=== PATIENT | female | born 1995 ===

== ENCOUNTER → 2023-08-24 | Outpatient (CLI) | payer SELFPAY ==
[2023-08-24 14:26] LABS: BASOPHILS ABSOLUTE AUTO 0.03 K/mm3 (0.00-0.23); BASOPHILS PERCENT AUTO 0 % (0-2); EOSINOPHILS ABSOLUTE AUTO 0.21 K/mm3 (0.00-0.68); EOSINOPHILS PERCENT AUTO 2 % (0-6); Hematocrit 41.1 % (33.0-51.0); IMMATURE GRAN ABSOLUTE AUTO 0.04 K/mm3 (0.00-0.10); IMMATURE GRAN PERCENT AUTO 0 % (0-1); LYMPHOCYTES ABSOLUTE AUTO 2.49 K/mm3 (0.84-5.20); LYMPHOCYTES PERCENT AUTO 22 % (21-46); MONOCYTES ABSOLUTE AUTO 0.83 K/mm3 (0.16-1.47); MONOCYTES PERCENT AUTO 7 % (4-13); Mean Corpuscular HGB 31.2 pg (26.0-34.0); Mean Corpuscular HGB Conc 34.1 g/dL (31.5-36.5); Mean Corpuscular Volume 92 fL (80-100); Mean Platelet Volume 10.5 fL (9.1-12.4); NEUTROPHILS ABSOLUTE AUTO 7.65 K/mm3 (1.96-9.15); NEUTROPHILS PERCENT AUTO 68 % (41-73); Platelet Count 251 K/mm3 (150-400); RDW Coefficient Variation 13.3 % (11.7-14.2); RDW Standard Deviation 44.5 fL (35.1-46.3); Red Blood Cell Count 4.49 M/mm3 (3.80-5.20); White Blood Cell Count 11.25 K/mm3 (4.00-11.30)
[2023-08-24 14:39] LABS: Albumin, Blood 3.3 g/dL (3.4-5.0); Bilirubin, Total 0.3 mg/dL (0.1-1.0); Bun/Creatinine Ratio 11.8 (12.0-20.0); Calcium, Blood 8.9 mg/dL (8.5-10.1); Creatinine, Blood 0.51 mg/dL (0.40-1.00); Globulin, Blood 3.4 g/dL (2.2-4.0); Magnesium, Blood 1.7 mg/dL (1.6-2.4); Potassium, Blood 3.7 mmol/L (3.5-5.5); Total Protein, Blood 6.7 g/dL (6.4-8.2)
== END ==
LOC: LAB SHORT 14:22
PROVIDERS: Chiropractor
DX: E86.0 Dehydration (principal)
CPT/HCPCS: 80053; 83735; 85025; 87086

== ENCOUNTER 2024-03-02 11:51 | Inpatient (IN) | payer OTHER ==
[2024-03-02] VITALS (10 sets, daily range): BP systolic 107–127; BP diastolic 58–81
[~2024-03-02] VITALS: Ht 165.1 cm; Wt 78.2 kg
[2024-03-02] MEDS ORDERED: Ampicillin Sod 2,000 MG in NS 100 ML IV STA (12:14)
[2024-03-02] MEDS ORDERED: Misoprostol 200 MCG Tab PR SCH (12:15)
[2024-03-02] MEDS ORDERED: Castor Oil 59.146 ML BTL TOP SCH (12:15)
[2024-03-02] MEDS ORDERED: Oxytocin 10 Unit / ML Vial IM SCH (12:15)
[2024-03-02] MEDS ORDERED: Methylergonovine Maleate 0.2MG / ML 1ML Amp IM SCH (12:15)
[2024-03-02] MEDS ORDERED: Bupivacaine 0.5% HCl 5 MG/ML 30MLVIAL XX SCH (12:15)
[2024-03-02] MEDS ORDERED: Lactated Ringer's 1,000 ML IV PRN (12:15)
[2024-03-02] MEDS ORDERED: OXYTOCIN/RINGER'S LACTATE 500 ML IV SCH ×2 (12:15→13:35)
[2024-03-02] MEDS ORDERED: Lidocaine HCl 1% 30 ML SDV XX SCH (12:15)
[2024-03-02] MEDS ORDERED: Bupivacaine HCl 2.5 MG/ML 10ML P/F Injection XX SCH (12:15)
[2024-03-02] MEDS ORDERED: Ondansetron HCl 2 MG / ML 2ML Vial ONE (12:20)
[2024-03-02] MEDS ORDERED: Lactated Ringer's 1,000 ML IV ONE (12:21)
[2024-03-02] MEDS ORDERED: OXYTOCIN/RINGER'S LACTATE 500 ML IV ONE (12:21)
[2024-03-02 12:26] LABS: BASOPHILS ABSOLUTE AUTO 0.03 K/mm3 (0.00-0.23); BASOPHILS PERCENT AUTO 0 % (0-2); EOSINOPHILS PERCENT AUTO 1 % (0-6); Hemoglobin 11.5 g/dL (11.5-16.0); IMMATURE GRAN ABSOLUTE AUTO 0.07 K/mm3 (0.00-0.10); IMMATURE GRAN PERCENT AUTO 1 % (0-1); LYMPHOCYTES ABSOLUTE AUTO 2.74 K/mm3 (0.84-5.20); LYMPHOCYTES PERCENT AUTO 22 % (21-46); MONOCYTES PERCENT AUTO 8 % (4-13); Mean Corpuscular HGB 28.2 pg (26.0-34.0); Mean Corpuscular HGB Conc 31.9 g/dL (31.5-36.5); Mean Corpuscular Volume 88 fL (80-100); Mean Platelet Volume 12.4 fL (9.1-12.4); NEUTROPHILS ABSOLUTE AUTO 8.28 K/mm3 (1.96-9.15); NEUTROPHILS PERCENT AUTO 68 % (41-73); Platelet Count 185 K/mm3 (150-400); RDW Coefficient Variation 13.5 % (11.7-14.2); RDW Standard Deviation 43.6 fL (35.1-46.3); Red Blood Cell Count 4.08 M/mm3 (3.80-5.20); White Blood Cell Count 12.22 K/mm3 (4.00-11.30)
[2024-03-02] MEDS ORDERED: Witch Hazel/Glycerin PADS TOP PRN (13:30)
[2024-03-02] MEDS ORDERED: Misoprostol 200 MCG Tab PO PRN (13:30)
[2024-03-02] MEDS ORDERED: Benzocaine Topical Anesthetic Spray 60GM TOP PRN (13:30)
[2024-03-02] MEDS ORDERED: Docusate Sodium 100 MG Cap PO PRN (13:30)
[2024-03-02] MEDS ORDERED: Ibuprofen 400 MG Tab PO PRN (13:30)
[2024-03-02] MEDS ORDERED: Diphth,Pertuss(Acell),Tet Vac 0.5 ML VIAL IM SCH (13:30)
[2024-03-02] MEDS ORDERED: Lactated Ringer's 1,000 ML IV SCH (13:35)
[2024-03-02] MEDS ORDERED: OxyCODONE 5 mg/Acetamin 325 mg TABLET PO PRN (13:35)
[2024-03-02] MEDS ORDERED: Methylergonovine Maleate 0.2MG / ML 1ML Amp IM PRN (13:35)
[2024-03-02] MEDS ORDERED: Lanolin Cream TOP PRN (13:35)
[2024-03-02] MEDS ORDERED: Acetaminophen 325 MG TABLET PO PRN (13:35)
[2024-03-02] MEDS ORDERED: Ketorolac Tromethamine 30mg Vial IV PRN (13:50)
[2024-03-02] MEDS ORDERED: Ketorolac Tromethamine 30mg Vial IV ONE (14:05)
[2024-03-02] MEDS ORDERED: Ondansetron HCl 2 MG / ML 2ML Vial IV ONE (14:20)
[2024-03-02] MEDS ORDERED: Ampicillin Sod 1,000 MG in NS 100 ML IV SCH (17:00)
[2024-03-02] MEDS ORDERED: Calcium Carbonate 500 MG Tab Chew PO PRN (19:15)
--- NOTE | 2024-03-02 22:45 | NUR ---
REPORT TO JAISON MARROQUIN
[2024-03-03 05:11] VITALS: BP 108/63
[2024-03-03 07:19] VITALS: BP 114/68
[2024-03-03] MEDS ORDERED: Prenatal Vit/FE Fumarate/FA 1 Tab PO SCH (09:00)
[2024-03-03] MEDS ORDERED: IBUP800 PO (14:20)
[2024-03-03 14:45] VITALS: BP 123/66
--- NOTE | 2024-03-03 15:04 | NUR ---
DISCHARGE DISCHARE HOME STABLE. CARING FOR SELF AND BABY INDEPENDANTLY. VSS. LOCHIA SCANT. VERBALIZES UNDERSTANDING OF DC INSTRUCTIONS AND FOLLOW UP APPOINTMENTS. NO QUESTIONS OR CONCERNS.
== END 2024-03-03 15:40 | disposition home or self-care (01) | DRG 807 ==
LOC: OBS 11:51 → BC 11:51 → OBS 12:11 → BC 12:13
PROVIDERS: ADMIT Advanced Practice Midwife
PROC: 10E0XZZ Delivery of Products of Conception, External Approach (ICD-10-PCS; principal; 2024-03-02)
DX: O99.824 Streptococcus B carrier state complicating childbirth (principal); Z37.0 Single live birth; Z3A.39 39 weeks gestation of pregnancy; Z98.890 Other specified postprocedural states
CPT/HCPCS: 36415; 85025; 86850; 86900; 86901; A9270; J0290; J1885; J2405; J7120

== ENCOUNTER 2024-09-01 19:43 | Emergency (ER) | payer OTHER ==
[~2024-09-01] VITALS: Ht 165.1 cm; Wt 72.6 kg
[~2024-09-01 19:43] MED LIST: IBUP800 PO
[2024-09-01 19:49] VITALS: BP 129/84
[2024-09-01 20:36] LABS: BASOPHILS ABSOLUTE AUTO 0.03 K/mm3 (0.00-0.23); BASOPHILS PERCENT AUTO 0 % (0-2); EOSINOPHILS ABSOLUTE AUTO 0.02 K/mm3 (0.00-0.68); EOSINOPHILS PERCENT AUTO 0 % (0-6); Hematocrit 42.9 % (33.0-51.0); Hemoglobin 14.1 g/dL (11.5-16.0); IMMATURE GRAN ABSOLUTE AUTO 0.03 K/mm3 (0.00-0.10); IMMATURE GRAN PERCENT AUTO 0 % (0-1); LYMPHOCYTES ABSOLUTE AUTO 1.82 K/mm3 (0.84-5.20); LYMPHOCYTES PERCENT AUTO 18 % (21-46); MONOCYTES ABSOLUTE AUTO 0.87 K/mm3 (0.16-1.47); MONOCYTES PERCENT AUTO 8 % (4-13); Mean Corpuscular HGB 27.9 pg (26.0-34.0); Mean Corpuscular HGB Conc 32.9 g/dL (31.5-36.5); Mean Corpuscular Volume 85 fL (80-100); Mean Platelet Volume 10.5 fL (9.1-12.4); NEUTROPHILS PERCENT AUTO 73 % (41-73); Platelet Count 267 K/mm3 (150-400); RDW Coefficient Variation 13.5 % (11.7-14.2); RDW Standard Deviation 41.9 fL (35.1-46.3); Red Blood Cell Count 5.06 M/mm3 (3.80-5.20); White Blood Cell Count 10.37 K/mm3 (4.00-11.30)
[2024-09-01 20:56] LABS: Albumin, Blood 3.8 g/dL (3.4-5.0); Bilirubin, Total 0.8 mg/dL (0.1-1.0); Calcium, Blood 9.1 mg/dL (8.5-10.1); Creatinine, Blood 0.62 mg/dL (0.40-1.00); Potassium, Blood 3.5 mmol/L (3.5-5.5); Total Protein, Blood 7.8 g/dL (6.4-8.2)
[2024-09-01] MEDS ORDERED: NS 1,000 ML IV SCH (21:15)
[2024-09-01] MEDS ORDERED: Ketorolac Tromethamine 15mg Vial IV ONE (21:35)
[2024-09-01] MEDS ORDERED: Azithromycin 250 MG Tab PO ONE (21:35)
[2024-09-01] MEDS ORDERED: AZIT250 PO (21:37)
== END 2024-09-01 22:02 | disposition home or self-care (01) ==
LOC: ER 19:43
PROVIDERS: Student in an Organized Health Care Education/Training Program
DX: J06.9 Acute upper respiratory infection, unspecified (principal); Z79.2 Long term (current) use of antibiotics
CPT/HCPCS: 71046; 80053; 83605; 85025; 96374; 99283-25; A9270; J1885